=== PATIENT | female | born 1990 | race African-American/Black ===

== ENCOUNTER 2017-11-16 07:10 | Outpatient (CLI) | payer OTHER ==
[~2017-11-16] VITALS: Ht 165.1 cm; Wt 65.3 kg
[2017-11-16 08:03] VITALS: BP 109/50; PULSE 67; TEMP 98
== END 2017-11-16 11:15 | disposition home or self-care (01) ==
LOC: COL.CAR 07:10
DX: R55 Syncope and collapse (principal); Z83.3 Family history of diabetes mellitus; Z82.3 Family history of stroke

== ENCOUNTER → 2019-04-28 | Outpatient (CLI) | payer OTHER | LOC: COL.CARD 09:57 | DX: R55 Syncope and collapse (principal) ==